=== PATIENT | male | born 1970 | race Caucasian/White ===

== ENCOUNTER 2019-07-16 12:12 | Emergency (ER) | payer BC ==
[2019-07-16 13:19] LABS: Absolute Lymphocytes (CBC) 1.7 K/uL (0.7-4.9); Basophils % 0.5 % (0-1.3); Lymphocytes % 26.5 % (15.3-44.8); MPV 8.8 fL (7.6-11.3); RBC Red Blood Cell Count 4.49 M/uL (4.33-5.43)
[2019-07-16 13:21] LABS: Protime INR 0.92
[2019-07-16 13:37] LABS: ALT/SGPT 32 U/L (12-78); AST/SGOT 25 U/L (15-37); Albumin 3.8 g/dL (3.4-5.0); Alkaline Phosphatase 84 U/L (45-117); BUN Blood Urea Nitrogen 12 mg/dL (7-18); Bicarbonate 28 mmol/L (21-32); Bilirubin Direct 0.2 mg/dL (0-0.2); Bilirubin Total 0.6 mg/dL (0.2-1.0); Glucose Level 107 mg/dL (74-106); Magnesium 2.1 mg/dL (1.8-2.4); NT PRO-BNP 31 pg/mL (<125); Potassium 3.6 mmol/L (3.5-5.1); Protein, Total 7.8 g/dL (6.4-8.2); Sodium Level 143 mmol/L (136-145); Troponin (Emerg Dept Use Only) < 0.02 ng/mL (0.0-0.045)
--- NOTE | 2019-07-16 13:41 | RAD REPORT ---
EXAM DESCRIPTION: RAD - Chest Single View - 07/16/2019 1:32 pm CLINICAL HISTORY: DYSPNEA Chest pain. COMPARISON: CHEST SINGLE VIEW dated 02/18/2015 FINDINGS: Portable technique limits examination quality. The lungs are grossly clear. The heart is normal in size. No displaced fractures. IMPRESSION: No acute intrathoracic process suspected.
--- NOTE | 2019-07-16 14:37 | RAD REPORT ---
EXAM DESCRIPTION: CT - Soft Tissue Neck W/Contr CLINICAL HISTORY: dysphagia Neck pain, dysphagia COMPARISON: No comparisons TECHNIQUE All CT scans are performed using dose optimization technique as appropriate and may includ e automated exposure control or mA/KV adjustment according to patient size. FINDINGS: No intrinsic or extrinsic neck mass is identified. Fossa of Rosenmuller are normal. The sm all bilateral tonsilliths seen. No abscess or pathologic fluid collection. No bulky lymphadenopathy in the neck. Mid and lower cervical degenerative changes are present. Salivary glands are symmetric in size. Thyro id gland is normal sized. Mild emphysematous changes are seen in the lung apices. IMPRESSION: No acute neck finding is identified.
--- NOTE | 2019-07-16 16:20 | EDPHYS ---
Physician Documentation [facility] Name: Дмитрий Baron Age: 48 yrs Sex: Male : 1970 Arrival Date: 07/16/2019 Time: 12:15 Bed 15 Private MD: ED Physician Costa Carrizales HPI: 07/16 16:43 This 48 yrs old Male presents to ER via Ambulatory with complaints of gs Shortness Of Breath. 16:43 The patient has shortness of breath says for about a month gets intermittent episodes gs of lightheartedness and gripping feeling in throat and says cant get a breath.. The patient's shortness of breath has no apparent modifying factors. Associated signs and symptoms: Pertinent negatives: chest pain, diaphoresis, fever, hemoptysis, visual changes, vomiting. Severity of symptoms: At their worst the symptoms were severe in the emergency department the symptoms have improved markedly. The patient has experienced similar episodes in the past, multiple times. The patient has not recently seen a physician. Historical: - Allergies: 12:36 No Known Allergies; iw - Home Meds: 12:36 None [Active]; iw - PMHx: 12:36 Hyperlipidemia; iw - PSHx: 12:36 None; iw - Immunization history:: Adult Immunizations not up to date. - Social history:: Smoking status: Patient uses tobacco products, smokes one-half pack cigarettes per day. - Ebola Screening: : Patient negative for fever greater than or equal to 101.5 degrees Fahrenheit, and additional compatible Ebola Virus Disease symptoms Patient denies exposure to infectious person Patient denies travel to an Ebola-affected area in the 21 days before illness onset No symptoms or risks identified at this time. ROS: 16:43 All other systems are negative. gs Exam: 16:43 Head/Face: Normocephalic, atraumatic. Eyes: Pupils equal round and reactive to light, gs extra-ocular motions intact. Lids and lashes normal. Conjunctiva and sclera are non-icteric and not injected. Cornea within normal limits. Periorbital areas with no swelling, redness, or edema. ENT: Nares patent. No nasal discharge, no septal abnormalities noted. Tympanic membranes are normal and external auditory canals are clear. Oropharynx with no redness, swelling, or masses, exudates, or evidence of obstruction, uvula midline. Mucous membranes moist. Chest/axilla: Normal chest wall appearance and motion. Nontender with no deformity. No lesions are appreciated. Cardiovascular: Regular rate and rhythm with a normal S1 and S2. No gallops, murmurs, or rubs. Normal PMI, no JVD. No pulse deficits. Respiratory: Lungs have equal breath sounds bilaterally, clear to auscultation and percussion. No rales, rhonchi or wheezes noted. No increased work of breathing, no retractions or nasal flaring. Abdomen/GI: Soft, non-tender, with normal bowel sounds. No distension or tympany. No guarding or rebound. No evidence of tenderness throughout. Back: No spinal tenderness. No costovertebral tenderness. Full range of motion. Skin: Warm, dry with normal turgor. Normal color with no rashes, no lesions, and no evidence of cellulitis. MS/ Extremity: Pulses equal, no cyanosis. Neurovascular intact. Full, normal range of motion. Neuro: Awake and alert, GCS 15, oriented to person, place, time, and situation. Cranial nerves II-XII grossly intact. Motor strength 5/5 in all extremities. Sensory grossly intact. Cerebellar exam normal. Normal gait. 16:43 Constitutional: The patient appears alert, awake. 16:43 Neck: External neck: is normal, no mass, tenderness, that is mild, of the right sternocleidomastoid and left sternocleidomastoid. 16:43 ECG was reviewed by the Attending Physician. Vital Signs: 12:35 BP 116 / 88; Pulse 85; Resp 18; Temp 98.3(TE); Pulse Ox 98% on R/A; Weight 81.65 kg; iw Height 6 ft. 0 in. (182.88 cm); Pain 0/10; 14:06 BP 106 / 86; Pulse 71; Resp 18; Pulse Ox 98% on R/A; ph 15:21 BP 113 / 91; Pulse 68; Resp 17; Temp 97.6(TE); Pulse Ox 98% on R/A; mh5 16:41 BP 112 / 78; Pulse 67; Resp 18; Temp 98.0; Pulse Ox 99% on R/A; ph 12:35 Body Mass Index 24.41 (81.65 kg, 182.88 cm) iw MDM: 12:53 Patient medically screened. gs 16:43 Differential diagnosis: Chronic Obstructive Pulmonary Disease cad,neck mass. Data gs reviewed: vital signs, nurses notes, lab test result(s), EKG, radiologic studies. Counseling: I had a detailed discussion with the patient and/or guardian regarding: the historical points, exam findings, and any diagnostic results supporting the discharge/admit diagnosis, the need for outpatient follow up. 07/16 12:55 Order name: Basic Metabolic Panel; Complete Time: 16:06 07/16 12:55 Order name: CBC with Diff gs 07/16 12:55 Order name: LFT's; Complete Time: 16:06 07/16 12:55 Order name: Magnesium; Complete Time: 16:06 07/16 12:55 Order name: NT PRO-BNP; Complete Time: 16:06 07/16 12:55 Order name: PT-INR; Complete Time: 16:06 07/16 12:55 Order name: Troponin (emerg Dept Use Only); Complete Time: 16:06 07/16 12:55 Order name: XRAY Chest (1 view) 07/16 12:55 Order name: EKG; Complete Time: 13:05 07/16 12:55 Order name: Cardiac monitoring; Complete Time: 13:19 07/16 12:55 Order name: EKG - Nurse/Tech; Complete Time: 13:19 07/16 13:20 Order name: CBC with Automated Diff EDMS 07/16 13:39 Order name: Soft Tissue Neck W/Contr; Complete Time: 16:06 EDMS 07/16 13:45 Order name: RAD; Complete Time: 16:06 EDMS 07/16 12:55 Order name: IV Saline Lock; Complete Time: 13:24 07/16 12:55 Order name: Labs collected and sent; Complete Time: 13:24 07/16 12:55 Order name: O2 Per Protocol; Complete Time: 14:05 07/16 12:55 Order name: O2 Sat Monitoring; Complete Time: 14:05 gs EC:43 Rate is 69 beats/min. Rhythm is regular. [place] interval is normal. QRS interval is normal. gs T waves are Normal. No ST changes noted. Clinical impression: Normal ECG. Interpreted by me. Administered Medications: No medications were administered Disposition: 07/16/19 16:18 Discharged to Home. Impression: Dyspnea. - Condition is Stable. - Discharge Instructions: Shortness of Breath, [id number]. - Medication Reconciliation Form, Thank You Letter, Antibiotic Education, Prescription Opioid Use form. - Follow up: Private Physician; When: 1 - 2 days; Reason: Recheck today's complaints, Continuance of care, Re-evaluation by your physician. Signatures: Dispatcher [employer] Jade Murdock RN RN Mallory Robledo RN RN ph Carrizales, MD MARIA GUADALUPE Skelton Corrections: (The following items were deleted from the chart) 16:41 16:18 07/16/2019 16:18 Discharged to Home. Impression: Dyspnea. Condition is Stable. ph Forms are Medication Reconciliation Form, Thank You Letter, Antibiotic Education, Prescription Opioid Use. Follow up: Private Physician; When: 1 - 2 days; Reason: Recheck today's complaints, Continuance of care, Re-evaluation by your physician. gs
--- NOTE | 2019-07-16 16:20 | ER ---
Nurse's Notes [facility] Name: Дмитрий Baron Age: 48 yrs Sex: Male : 1970 Arrival Date: 07/16/2019 Time: 12:15 Bed 15 Private MD: Diagnosis: Dyspnea Presentation: 07/16 12:34 Presenting complaint: Patient states: feels like he's gonna pass out, also has mild SOB iw X 2 hours, has had a feeling like he's choking for past 6 months, felt worse X 2 weeks, also feels anxious. Transition of care: patient was not received from another setting of care. Onset of symptoms was July 02, 2019. Risk Assessment: Do you want to hurt yourself or someone else? Patient reports no desire to harm self or others. Initial Sepsis Screen: Does the patient meet any 2 criteria? No. Patient's initial sepsis screen is negative. Does the patient have a suspected source of infection? No. Patient's initial sepsis screen is negative. Care prior to arrival: None. 12:34 Method Of Arrival: Ambulatory iw 12:34 Acuity: ANA 3 iw Historical: - Allergies: 12:36 No Known Allergies; iw - Home Meds: 12:36 None [Active]; iw - PMHx: 12:36 Hyperlipidemia; iw - PSHx: 12:36 None; iw - Immunization history:: Adult Immunizations not up to date. - Social history:: Smoking status: Patient uses tobacco products, smokes one-half pack cigarettes per day. - Ebola Screening: : Patient negative for fever greater than or equal to 101.5 degrees Fahrenheit, and additional compatible Ebola Virus Disease symptoms Patient denies exposure to infectious person Patient denies travel to an Ebola-affected area in the 21 days before illness onset No symptoms or risks identified at this time. Screenin:35 Abuse screen: Denies threats or abuse. Denies injuries from another. Nutritional ph screening: No deficits noted. Tuberculosis screening: No symptoms or risk factors identified. Fall Risk None identified. Assessment: 12:45 General: Appears in no apparent distress. comfortable, slender, well groomed, Behavior ph is calm, cooperative, appropriate for age, Denies fever, feeling ill. Pain: Denies pain. 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 Cardiovascular: Capillary refill < 3 seconds in bilateral fingers Patient's skin is warm and dry. Rhythm is sinus rhythm. Respiratory: Reports shortness of breath states, " It feels like there's pressure on my throat, like something is choking me." Airway is patent Respiratory effort is even, unlabored, Respiratory pattern is regular, symmetrical, Breath sounds are clear bilaterally. GI: No signs and/or symptoms were reported involving the gastrointestinal system. Derm: Skin is intact, is healthy with good turgor, Skin is pink, warm \\T\\ dry. Musculoskeletal: Circulation, motion, and sensation intact. Range of motion: intact in all extremities. 14:05 Reassessment: Patient appears in no apparent distress at this time. Patient and/or ph family updated on plan of care and expected duration. Pain level reassessed. Patient is alert, oriented x 3, equal unlabored respirations, skin warm/dry/pink. Pt resting quietly, awaiting CT scan, VSS, SO at bedside. 15:00 Reassessment: Patient appears in no apparent distress at this time. Patient and/or ph family updated on plan of care and expected duration. Pain level reassessed. Patient is alert, oriented x 3, equal unlabored respirations, skin warm/dry/pink. Awaiting CT results, VSS. 16:37 Reassessment: Patient appears in no apparent distress at this time. Patient and/or ph family updated on plan of care and expected duration. Pain level reassessed. Patient is alert, oriented x 3, equal unlabored respirations, skin warm/dry/pink. Pt d/c home. Vital Signs: 12:35 BP 116 / 88; Pulse 85; Resp 18; Temp 98.3(TE); Pulse Ox 98% on R/A; Weight 81.65 kg; iw Height 6 ft. 0 in. (182.88 cm); Pain 0/10; 14:06 BP 106 / 86; Pulse 71; Resp 18; Pulse Ox 98% on R/A; ph 15:21 BP 113 / 91; Pulse 68; Resp 17; Temp 97.6(TE); Pulse Ox 98% on R/A; mh5 16:41 BP 112 / 78; Pulse 67; Resp 18; Temp 98.0; Pulse Ox 99% on R/A; ph 12:35 Body Mass Index 24.41 (81.65 kg, 182.88 cm) iw ED Course: 12:15 Patient arrived in ED. mr 12:22 Costa Carrizales MD is Attending Physician. gs 12:30 Mallory Robledo, RN is Primary Nurse. ph 12:35 Triage completed. iw 12:35 Patient has correct armband on for positive identification. Placed in gown. Bed in low ph position. Call light in reach. Side rails up X 1. Pulse ox on. NIBP on. Door closed. Noise minimized. Warm blanket given. 13:15 EKG done, by residential tech. reviewed by Costa Carrizales MD. 3 13:20 Radiology exam delayed due to lab results not completed at this time. (BUN/Creatinine). jg6 13:22 Initial lab(s) drawn, by hi, sent to lab. Inserted saline lock: 20 gauge in right mh5 antecubital area, using aseptic technique. Blood collected. 13:22 Basic Metabolic Panel Sent. 5 13:23 CBC with Diff Sent. 5 13:23 LFT's Sent. [facility] 13:23 Magnesium Sent. [facility] 13:23 NT PRO-BNP Sent. [facility] 13:23 Troponin (emerg Dept Use Only) Sent. [facility] 13:23 NT PRO-BNP Sent. [facility] 13:23 LFT's Sent. [facility] 13:23 Basic Metabolic Panel Sent. [facility] 13:23 Magnesium Sent. [facility] 13:23 PT-INR Sent. 5 13:28 X-ray completed. Portable x-ray completed in exam room. Patient tolerated procedure jb2 well. 14:00 Arm band placed on. ph 14:26 Soft Tissue Neck W/Contr In Process Unspecified. EDMS 16:40 No provider procedures requiring assistance completed. IV discontinued, intact, ph bleeding controlled, No redness/swelling at site. Pressure dressing applied. Administered Medications: No medications were administered Outcome: 16:18 Discharge ordered by . gs 16:41 Discharged to home ambulatory, with significant other. ph 16:41 Condition: good 16:41 Discharge instructions given to patient, Instructed on discharge instructions, follow up and referral plans. Demonstrated understanding of instructions, follow-up care. 16:41 Patient left the ED. ph Signatures: Dispatcher [employer] EDDC Hudson, Shayy Barone, August jb2 Jade Braxton RN RN iw Mallory Robledo RN RN Kirsty Olivo 5 Costa Carrizales MD MD gs Montes, Shakira 3 Dolores Carrion6 Corrections: (The following items were deleted from the chart) 12:36 12:35 BP 116 / 88; Pulse 85bpm; Resp 18bpm; Pulse Ox 98% RA; ph iw
--- NOTE | 2019-07-17 11:24 | EKG ---
Test Date: 2019-07-16 Test Time: 12:32:46 Floor Tech: JOANNE MEASUREMENT RESULTS: Intervals: Rate: 69 VA: 152 QRSD: 94 QT: 386 QTc: 413 [place]: P: 63 VA: 152 QRS: 56 T: 33 INTERPRETIVE STATEMENTS: Normal sinus rhythm Normal ECG Compared to ECG 02/18/2015 04:02:56 No significant changes Electronically Signed On 07-17-19 11:19:41 CDT by Marcus Ballard
== END 2019-07-16 16:41 | disposition home or self-care (01) ==
LOC: ER 12:12
DX: R06.00 Dyspnea, unspecified (principal); E78.5 Hyperlipidemia, unspecified; F17.210 Nicotine dependence, cigarettes, uncomplicated
CPT/HCPCS: 93005; 85025; 80048; 36415; 83735; 85610; 80076; 84484; 83880; 70491; 71045; 99284; Q9967

== ENCOUNTER 2022-06-20 22:11 | Emergency (ER) | payer BC ==
[2022-06-20 22:34] LABS: Absolute Lymphocytes (CBC) 3.2 K/uL (0.7-4.9); Hematocrit 42.4 % (39.6-49.0); Lymphocytes % 35.7 % (15.3-44.8); MCV 92.2 fL (80-100)
[2022-06-20 22:54] LABS: Potassium 3.3 mmol/L (3.5-5.1); Troponin High Sensitivity 5.6 pg/mL (<58.9)
[2022-06-20] MEDS ORDERED: POTASSIUM 25 MEQ EFFERV TAB ONE (23:22)
[2022-06-20] MEDS ORDERED: NA CHLORIDE 0.9% 1,000 ML ONE (23:22)
--- NOTE | 2022-06-21 01:21 | ER ---
Nurse's Notes [facility] Name: Дмитрий Baron Age: 51 yrs Sex: Male : 1970 Arrival Date: 06/20/2022 Time: 22:19 Bed 20 Private MD: Diagnosis: Syncope Near;Weakness;Dehydration;Hypokalemia Presentation: 06/20 22:22 Chief complaint: Patient states: "I was sitting down and I went to stand up and I felt tw5 what I thougtht was a really bad jenny horse in my inner thigh of my left leg. Then the pain spread to my whole leg. At that point I got really sweaty and I felt like I was going to pass out. When I put my head down it took me about 6 times to try and stand up, then I got even sweatier". Chief complaint:. Coronavirus screen: Vaccine status: Patient reports receiving the 2nd dose of the covid vaccine. unknown. Ebola Screen: Patient negative for fever greater than or equal to 101.5 degrees Fahrenheit, and additional compatible Ebola Virus Disease symptoms Patient denies exposure to infectious person. Patient denies travel to an Ebola-affected area in the 21 days before illness onset. Initial Sepsis Screen: Does the patient meet any 2 criteria? No. Patient's initial sepsis screen is negative. Does the patient have a suspected source of infection? No. Patient's initial sepsis screen is negative. Risk Assessment: Do you want to hurt yourself or someone else? Patient reports no desire to harm self or others. Onset of symptoms was June 20, 2022 at 21:50. 22:22 Method Of Arrival: Ambulatory tw5 22:22 Acuity: ANA 2 tw5 Triage Assessment: 22:25 General: Appears uncomfortable, Behavior is agitated, anxious. Pain: Denies pain. Derm: tw5 Skin is diaphoretic, Skin is pale. Historical: - Allergies: 22:24 No Known Allergies; tw5 - Home Meds: 22:24 None [Active]; tw5 - PMHx: 22:24 Hyperlipidemia; tw5 22:25 vasovagal syncope; tw5 - PSHx: 22:25 None; tw5 - Immunization history:: Flu vaccine is not up to date. - Social history:: Smoking status: Patient reports the use of cigarette tobacco products, smokes one-half pack cigarettes per day, Patient uses alcohol, occasionally. Screenin:28 Abuse screen: Denies threats or abuse. Denies injuries from another. Nutritional hb screening: No deficits noted. Tuberculosis screening: No symptoms or risk factors identified. Fall Risk None identified. Assessment: 22:28 General: Appears in no apparent distress. Behavior is calm, cooperative. Pain: Denies hb pain. Neuro: Level of Consciousness is awake, alert, obeys commands, Oriented to person, place, time, situation. Cardiovascular: Patient's skin is warm and dry. Respiratory: Respiratory effort is even, unlabored, Respiratory pattern is regular, symmetrical. GI: No signs and/or symptoms were reported involving the gastrointestinal system. : No signs and/or symptoms were reported regarding the genitourinary system. EENT: No signs and/or symptoms were reported regarding the EENT system. Derm: Skin is pink, warm \\T\\ dry. Musculoskeletal: No signs and/or symptoms reported regarding the musculoskeletal system. 23:35 Reassessment: No changes from previously documented assessment. Patient and/or family ll3 updated on plan of care and expected duration. Pain level reassessed. Patient is alert, oriented x 3, equal unlabored respirations, skin warm/dry/pink. 06/21 00:40 Reassessment: No changes from previously documented assessment. Patient and/or family ll3 updated on plan of care and expected duration. Pain level reassessed. Patient is alert, oriented x 3, equal unlabored respirations, skin warm/dry/pink. Vital Signs: 06/20 22:22 BP 119 / 85; Pulse 96; Resp 18; Temp 98.1; Pulse Ox 95% on R/A; Weight 81.65 kg; Height tw5 6 ft. 0 in. (182.88 cm); Pain 0/10; 22:38 BP 115 / 82; Pulse 100; Resp 17; Pulse Ox 98% on R/A; hb 23:35 BP 116 / 83; Pulse 90; Resp 17; Pulse Ox 96% on R/A; ll3 06/21 00:46 BP 127 / 61; Pulse 80; Resp 17; Pulse Ox 98% on R/A; ll3 06/20 22:22 Body Mass Index 24.41 (81.65 kg, 182.88 cm) tw5 ED Course: 06/20 22:19 Patient arrived in ED. hb 22:24 Triage completed. tw5 22:25 Arm band placed on right wrist. Patient placed in an exam room, on a stretcher, on tw5 monitoring tech, on pulse oximetry. 22:26 Inserted saline lock: 20 gauge in left antecubital area, using aseptic technique. Blood hb collected. 22:27 Rito Pack MD is Attending Physician. kdr 22:28 Patient has correct armband on for positive identification. hb 22:38 Maggy Garcia, RN is Primary Nurse. hb 22:45 XRAY Chest (1 view) In Process Unspecified. EDMS 06/21 01:36 No provider procedures requiring assistance completed. IV discontinued, intact, ll3 bleeding controlled, No redness/swelling at site. Pressure dressing applied. Administered Medications: 06/20 23:22 Drug: NS 0.9% 1000 ml Route: IV; Rate: 1 bolus; Site: left antecubital; ll3 06/21 01:36 Follow up: Response: No adverse reaction; IV Status: Completed infusion; IV Intake: ll3 1000ml 06/20 23:22 Drug: Potassium Effervescent Tablet 50 mEq Route: PO; ll3 06/21 01:36 Follow up: Response: No adverse reaction ll3 Medication: 06/20 22:28 VIS not applicable for this client. hb Intake: 06/21 01:36 IV: 1000ml; Total: 1000ml. ll3 Outcome: 01:21 Discharge ordered by . kdr 01:36 Discharged to home ambulatory. ll3 01:36 Condition: stable 01:36 Discharge instructions given to patient, Instructed on discharge instructions, follow up and referral plans. Demonstrated understanding of instructions, follow-up care. 01:36 Patient left the ED. ll3 Signatures: Dispatcher [employer] EDAZ Rito Pack MD MD kdr Maggy Garcia, ZEE Norman Ana Maria tw5 Linda Roberts RN RN ll3 Corrections: (The following items were deleted from the chart) 06/20 22:26 22:25 PSHx: None; tw5 tw5 06/21 00:47 00:40 BP 101 / 59; Pulse 61bpm; Resp 18bpm; Pulse Ox 99% RA; ll3 ll3
--- NOTE | 2022-06-21 01:21 | EDPHYS ---
Physician Documentation [facility] Name: Дмитрий Baron Age: 51 yrs Sex: Male : 1970 Arrival Date: 06/20/2022 Time: 22:19 Bed 20 Private MD: ED Physician Rito Pack HPI: 06/20 23:48 This 51 yrs old Male presents to ER via Ambulatory with complaints of Near Syncope. kdr 23:48 The patient has experienced near-syncope, almost passed out, felt dizzy, felt faint, kdr felt generally weak. Onset: The symptoms/episode began/occurred suddenly, just prior to arrival. Duration: This was a single episode, Lasted only a few mintues. Context: occurred at home, occurred while the patient was Patient had been sitting on a couch when he got up to go into the kitchen, he had a sudden onset of severe cramp in his medial left thigh. The severity of the cramp in his thigh made him lightheaded dizzy and diaphoretic. He felt like he was almost going to pass out. He had no other symptoms. He was able to sit down and get more comfortable. He did not ever actually or fully pass out as far as he knows. Bill presently has a mild discomfort in his medial left thigh however he otherwise is stable and nontoxic-appearing. Patient has been working outside yesterday states that he was drinking both Gatorade and water. Additionally he had had more Gatorade and water today. He was not outside today though. Yesterday he was sweating very profusely while outside working. No this incident, the patient had been otherwise in his usual state of health during the day.. Associated injury: The patient did not suffer any apparent associated injury. Associated signs and symptoms: Pertinent positives: Muscle spasm to left medial thigh. Current symptoms: Currently, the patient is not experiencing any symptoms, the patient feels back to baseline. The patient has not experienced similar symptoms in the past. The patient has not recently seen a physician. Historical: - Allergies: 22:24 No Known Allergies; tw5 - Home Meds: 22:24 None [Active]; tw5 - PMHx: 22:24 Hyperlipidemia; tw5 22:25 vasovagal syncope; tw5 - PSHx: 22:25 None; tw5 - Immunization history:: Flu vaccine is not up to date. - Social history:: Smoking status: Patient reports the use of cigarette tobacco products, smokes one-half pack cigarettes per day, Patient uses alcohol, occasionally. ROS: 23:48 Constitutional: Negative for fever, chills, and weight loss, Eyes: Negative for injury, kdr pain, redness, and discharge, Neck: Negative for injury, pain, and swelling, Cardiovascular: Negative for chest pain, palpitations, and edema, Respiratory: Negative for shortness of breath, cough, wheezing, and pleuritic chest pain, Abdomen/GI: Negative for abdominal pain, nausea, vomiting, diarrhea, and constipation, Back: Negative for injury and pain, : Negative for injury, bleeding, discharge, and swelling, Skin: Negative for injury, rash, and discoloration, Psych: Negative for depression, anxiety, suicide ideation, homicidal ideation, and hallucinations, Allergy/Immunology: Negative for hives, rash, and allergies, Endocrine: Negative for neck swelling, polydipsia, polyuria, polyphagia, and marked weight changes, Hematologic/Lymphatic: Negative for swollen nodes, abnormal bleeding, and unusual bruising. 23:48 MS/extremity: Positive for decreased range of motion, pain, of the medial aspect of left thigh, Negative for injury or acute deformity. 23:48 Skin: Positive for diaphoresis. 23:48 Neuro: Positive for dizziness, gait disturbance, near syncope, weakness, Negative for Exam: 23:23 Constitutional: This is a well developed, well nourished patient who is awake, alert, kdr and in no acute distress. Head/Face: Normocephalic, atraumatic. Eyes: Pupils equal round and reactive to light, extra-ocular motions intact. Lids and lashes normal. Conjunctiva and sclera are non-icteric and not injected. Cornea within normal limits. Periorbital areas with no swelling, redness, or edema. Neck: Trachea midline, no thyromegaly or masses palpated, and no cervical lymphadenopathy. Supple, full range of motion without nuchal rigidity, or vertebral point tenderness. No Meningismus. Chest/axilla: Normal chest wall appearance and motion. Nontender with no deformity. No lesions are appreciated. Cardiovascular: Regular rate and rhythm with a normal S1 and S2. No gallops, murmurs, or rubs. Normal PMI, no JVD. No pulse deficits. Respiratory: Lungs have equal breath sounds bilaterally, clear to auscultation and percussion. No rales, rhonchi or wheezes noted. No increased work of breathing, no retractions or nasal flaring. Abdomen/GI: Soft, non-tender, with normal bowel sounds. No distension or tympany. No guarding or rebound. No evidence of tenderness throughout. Back: No spinal tenderness. No costovertebral tenderness. Full range of motion. Skin: Warm, dry with normal turgor. Normal color with no rashes, no lesions, and no evidence of cellulitis. MS/ Extremity: Pulses equal, no cyanosis. Neurovascular intact. Full, normal range of motion. Neuro: Awake and alert, GCS 15, oriented to person, place, time, and situation. Cranial nerves II-XII grossly intact. Motor strength 5/5 in all extremities. Sensory grossly intact. Cerebellar exam normal. Normal gait. Psych: Awake, alert, with orientation to person, place and time. Behavior, mood, and affect are within normal limits. 23:23 ECG was reviewed by the Attending Physician. Vital Signs: 22:22 BP 119 / 85; Pulse 96; Resp 18; Temp 98.1; Pulse Ox 95% on R/A; Weight 81.65 kg; Height tw5 6 ft. 0 in. (182.88 cm); Pain 0/10; 22:38 BP 115 / 82; Pulse 100; Resp 17; Pulse Ox 98% on R/A; hb 23:35 BP 116 / 83; Pulse 90; Resp 17; Pulse Ox 96% on R/A; ll3 06/21 00:46 BP 127 / 61; Pulse 80; Resp 17; Pulse Ox 98% on R/A; ll3 06/20 22:22 Body Mass Index 24.41 (81.65 kg, 182.88 cm) tw5 MDM: 01:21 Patient medically screened. kdr 01:28 Data reviewed: vital signs, nurses notes. Counseling: I had a detailed discussion with kdr the patient and/or guardian regarding: the historical points, exam findings, and any diagnostic results supporting the discharge/admit diagnosis, lab results, radiology results, the need for outpatient follow up. 06/20 22:25 Order name: Basic Metabolic Panel hb 06/20 22:25 Order name: CBC with Diff hb 06/20 22:25 Order name: Troponin HS hb 06/20 22:32 Order name: Basic Metabolic Panel; Complete Time: 23:03 EDMS 06/20 22:32 Order name: Troponin High Sensitivity; Complete Time: 23:03 EDMS 06/20 22:32 Order name: CBC with Automated Diff; Complete Time: 23:03 EDMS 06/20 22:25 Order name: XRAY Chest (1 view) hb 06/20 22:25 Order name: EKG; Complete Time: : hb 06/20 22:25 Order name: Cardiac monitoring; Complete Time: :27 hb 06/20 22:25 Order name: EKG - Nurse/Tech; Complete Time: : hb 06/20 22:25 Order name: IV Saline Lock; Complete Time: : hb 06/20 23:11 Order name: Troponin High Sensitivity: Draw 2 hours after initial draw; Complete Time: kdr :06/20 22:25 Order name: Labs collected and sent; Complete Time: : hb 06/20 22:25 Order name: O2 Per Protocol; Complete Time: : hb 06/20 22:25 Order name: O2 Sat Monitoring; Complete Time: : hb EC/31 23:23 Rate is 89 beats/min. Rhythm is regular, Normal Sinus Rhythm with No ectopy. QRS [place] kdr is Normal. [place] interval is normal. QRS interval is normal. QT interval is normal. Clinical impression: Normal ECG. Administered Medications: 23:22 Drug: NS 0.9% 1000 ml Route: IV; Rate: 1 bolus; Site: left antecubital; 3 06/21 01:36 Follow up: Response: No adverse reaction; IV Status: Completed infusion; IV Intake: ll3 1000ml 06/20 23:22 Drug: Potassium Effervescent Tablet 50 mEq Route: PO; ll3 06/21 01:36 Follow up: Response: No adverse reaction ll3 Disposition Summary: 06/21/22 01:21 Discharge Ordered Location: Home kdr Problem: an acute exacerbation kdr Symptoms: have improved kdr Condition: Stable kdr Diagnosis - Syncope Near kdr - Weakness kdr - Dehydration kdr - Hypokalemia kdr Followup: kdr - With: Private Physician - When: 2 - 3 days - Reason: If symptoms return, Further diagnostic work-up, Recheck today's complaints, Continuance of care, Re-evaluation by your physician Discharge Instructions: - Discharge Summary Sheet kdr - Dehydration, Adult kdr - Weakness kdr - Fatigue kdr - Weakness, [id number] kdr - Hypokalemia kdr - Rehydration, Adult kdr Forms: - Medication Reconciliation Form kdr - Thank You Letter kdr Signatures: Dispatcher [employer] Rito Hightowre MD MD kdr Maggy Garcia RN RN hb Wood, Tiffany tw5 Linda Roberts RN RN ll3 Corrections: (The following items were deleted from the chart) 06/20 22:26 22:25 PSHx: None; tw5 tw5
[2022-06-21 01:42] VITALS: TEMP 98.1
[2022-06-21 01:49] VITALS: BP 127/61; O2SAT 98
--- NOTE | 2022-06-21 12:20 | EKG ---
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
--- NOTE | 2022-06-21 13:01 | RAD REPORT ---
EXAM DESCRIPTION: RAD - Chest Single View - 06/20/2022 10:44 pm CLINICAL HISTORY: SOB COMPARISON: None. FINDINGS: Single frontal radiograph view of the chest. Cardiomediastinal silhouette: Normal size and contour. Lungs: No consolidation, pneumothorax, or pleural effusion. Bones: No acute osseous abnormality. Leads overlie the chest. Upper abdomen: No abnormality identified. IMPRESSION: 1. No acute pulmonary process identified. Electronically signed by: Abelino Arango 06/20/2022 11:23 PM CDT Due to temporary technical issues with the PACS/Fluency reporting system, reports are being signed by the in house radiologists without review as a courtesy to insure prompt reporting. The interpreting radiologist is fully responsible for the content of the report.
== END 2022-06-21 01:36 | disposition home or self-care (01) ==
LOC: ER 22:11
DX: R55 Syncope and collapse (principal); E86.0 Dehydration; E87.6 Hypokalemia; R53.1 Weakness; E78.5 Hyperlipidemia, unspecified; F17.210 Nicotine dependence, cigarettes, uncomplicated
CPT/HCPCS: 93005; 85025; 80048; 36415; 84484 ×2; 71045; J7030; 96360; 96361; 99284